=== PATIENT | female | born 1965 | race Caucasian/White ===

== ENCOUNTER → 2018-05-27 | Outpatient (CLI) | payer OTHER ==
--- NOTE | 2018-05-27 13:28 | XR ---
Left shoulder HISTORY: Left shoulder pain 3 views of the left shoulder, no comparisons There is hypertrophic change, subchondral cyst formation at the acromioclavicular joint. Alignment is maintained. Left lung apex as visualized is normal. No fracture or dislocation. IMPRESSION: Acromioclavicular joint arthropathy.
== END | disposition home or self-care (01) ==
LOC: RADXRMAIN 12:46
PROVIDERS: ATTEND Family Medicine
DX: M12.812 Other specific arthropathies, not elsewhere classified, left shoulder (principal)

== ENCOUNTER → 2018-10-30 | Outpatient (CLI) | payer OTHER ==
--- NOTE | 2018-10-31 11:03 | MM ---
Reason for exam: screening (asymptomatic). Last mammogram was performed 3 years and 7 months ago. Physical Findings: A clinical breast exam by your physician is recommended on an annual basis and results should be correlated with mammographic findings. MG 3D Screening Mammo W/Cad Bilateral CC and MLO view(s) were taken. Prior study comparison: March 25, 2015, bilateral MG 3d diag mammo w/cad [facility]. The breast tissue is heterogeneously dense. This may lower the sensitivity of mammography. There is chronic nodularity bilaterally. There is no discrete abnormality. ASSESSMENT: Benign, BI-RAD 2 RECOMMENDATION: Routine screening mammogram of both breasts in 1 year.
== END | disposition home or self-care (01) ==
LOC: RADMAMWWP 08:41
PROVIDERS: ATTEND Obstetrics & Gynecology
DX: Z12.31 Encounter for screening mammogram for malignant neoplasm of breast (principal)
CPT/HCPCS: 77063; 77067

== ENCOUNTER 2019-07-31 14:55 | Emergency (ER) | payer OTHER ==
[2019-07-31] MEDS ORDERED: ACETAMINOPHEN TAB 325 MG TAB PO STA (16:25)
--- NOTE | 2019-07-31 16:35 | ED ---
Fall HPI - General Chief Complaint: Fall Stated Complaint: Fall, Facial Lac Time Seen by Provider: 07/31/19 16:05 Source: patient Mode of arrival: ambulatory - History of Present Illness Initial Comments: Patient is a 54-year-old female presenting to emergency Department after a fall just prior to arrival. Patient states she tripped in a pothole and fell forward. She did put out her right hand to help manage her fall. She did hit her nose on the cement. She is complaining of pain in her right wrist as well as her nose hurting. There is no loss of consciousness. Patient denies lightheadedness, dizziness, nausea, vomiting. She is not on blood thinners. She denies any previous injury to her right wrist. She denies any lower extremity pain or injuries. She has no other complaints at this time. Upon arrival to the ER, her vital signs are stable. - Related Data Allergies Allergy/AdvReac Type Severity Reaction Status Date / Time No Known Allergies Allergy Verified 07/31/19 15:32 Review of Systems ROS Statement: Those systems with pertinent positive or pertinent negative responses have been documented in the HPI. ROS Other: All systems not noted in ROS Statement are negative. Past Medical History Past Medical History: Hypertension, Thyroid Disorder History of Any Multi-Drug Resistant Organisms: None Reported Past Surgical History: Adenoidectomy, Cholecystectomy, Tonsillectomy Past Psychological History: No Psychological Hx Reported Smoking Status: Never smoker Past Alcohol Use History: None Reported Past Drug Use History: None Reported General Exam - General Exam Comments Initial Comments: GENERAL: Well-appearing, well-nourished and in no acute distress. HEAD: Atraumatic, normocephalic. No signs of basilar skull fracture. EYES: Pupils equal round and reactive to light, extraocular movements intact, sclera anicteric, conjunctiva are normal. ENT: TMs normal, nares patent, oropharynx clear without exudates. Moist mucous membranes. Patient has a mild abrasion to the nasal bridge, pain with palpation of the distal part of the nasal bone as well as into the cartilage. No septal hematoma seen. No deformity noted. NECK: Normal range of motion, supple without lymphadenopathy or JVD. No midline tenderness. LUNGS: Breath sounds clear to auscultation bilaterally and equal. No wheezes rales or rhonchi. HEART: Regular rate and rhythm without murmurs, rubs or gallops. ABDOMEN: Soft, nontender, normoactive bowel sounds. No guarding, no rebound. No masses appreciated. : Deferred EXTREMITIES: Pain with palpation of the lateral aspect of the right wrist. Pain with supination and pronation. Patient does not want to flex or extend the wrist secondary to pain. She is neurovascular intact. She does have mild swelling around the right wrist. NEUROLOGICAL: Cranial nerves II through XII grossly intact. Normal speech, normal gait. PSYCH: Normal mood, normal affect. SKIN: Warm, Dry, normal turgor, no rashes or lesions noted. Limitations: no limitations Course Vital Signs 07/31/19 07/31/19 15:33 17:27 Temperature 98 F 97.9 F Pulse Rate 75 82 Respiratory 19 18 Rate Blood Pressure 153/87 148/72 O2 Sat by Pulse 99 98 Oximetry Procedures - Orthopedic Splinting/Casting Injury #1 Side: right Upper Extremity Injury Location: wrist Upper Extremity Immobilizer: wrist splint, Edwin wrap, synthetic pre-padded splint Medical Decision Making - Medical Decision Making Patient is a 54-year-old female presenting after tripping and falling and a popsicle. She has pain of her right wrist as well as her nasal bone. There was no LOC, no blood thinners. Patient has no noted deficits. She only has a small abrasion to her nasal bridge. No deformity seen. X-rays of the right wrist reveal an acute comminuted minimally displaced fracture through the volar radial aspect of the distal radius. Patient was placed in a splint until follow-up with orthopedics. She is in agreement with this plan of care. Patient stable for discharge at this time. Return parameters were discussed with the patient she verbalized understanding. Case discussed with Dr. Adrian. Disposition Clinical Impression: Fall, Right radial head fracture Disposition: HOME SELF-CARE Condition: Stable Instructions (If sedation given, give patient instructions): Wrist Fracture in Adults (ED) Additional Instructions: Please return to the Emergency Department if symptoms worsen or any other concerns. May take Tylenol or Motrin for discomfort as well as icing to the area. Keep wrist elevated. Follow-up with orthopedics as discussed. Is patient prescribed a controlled substance at d/c from ED?: No Referrals: Robe Nguyen DO [Primary Care Provider] - 1-2 days Branch,Robert M, PAC [PHYSICIAN PUBLICITY PERSON] - 1-2 days
--- NOTE | 2019-07-31 16:40 | XR ---
EXAMINATION TYPE: XR wrist complete RT DATE OF EXAM: 07/31/2019 CLINICAL HISTORY: Pain after fall injury. TECHNIQUE: Frontal, lateral, scaphoid, and oblique images of the right wrist are obtained. COMPARISON: None FINDINGS: There is an acute comminuted minimally displaced intra-articular fracture through the radi al aspect of the distal radial meta-epiphysis. Adjacent ulna is intact. Minus ulnar variance is seen. The joint spaces in the right wrist appear within normal limits. The overlying soft tissue appears unremarkable. IMPRESSION: There is an acute comminuted minimally displaced intra-articular fracture through the vo lar radial aspect of the distal radial meta-epiphysis. (Initial encounter closed type posttraumatic fracture)
[2019-07-31 17:28] VITALS: BP 148/72; PULSE 82; RESP 18; TEMP 97.9
== END 2019-07-31 17:28 | disposition home or self-care (01) ==
LOC: EC 14:55
DX: S52.121A Displaced fracture of head of right radius, initial encounter for closed fracture (principal); S00.31XA Abrasion of nose, initial encounter; I10 Essential (primary) hypertension; W17.2XXA Fall into hole, initial encounter
CPT/HCPCS: 99283

== ENCOUNTER → 2021-10-18 | Outpatient (CLI) | payer OTHER ==
--- NOTE | 2021-10-19 18:50 | MM ---
Reason for Exam: Screening (asymptomatic). Last mammogram was performed 2 year(s) and 11 month(s) ago. Patient History: Menarche at age 14. First Full-Term at age 25. Risk Values: Sharron 5 year model risk: 1.1%. NCI Lifetime model risk: 7.4%. Prior Study Comparison: 03/25/2015 Bilateral Diagnostic Mammogram, [facility]. 10/30/2018 Bilateral Screening Mammogram, [facility]. Tissue Density: There are scattered fibroglandular densities. Findings: Analyzed By CAD. There is no suspicious group of microcalcifications or new suspicious mass in either breast. Chronic nodularity is present bilaterally. Overall Assessment: Benign, BI-RAD 2 Management: Screening Mammogram of both breasts in 1 year. A clinical breast exam by your physician is recommended on an annual basis and results should be correlated with mammographic findings. Electronically signed and approved by: Davonte Sky D.O. Radiologis
== END | disposition home or self-care (01) ==
LOC: RADMAMWWP 14:06
PROVIDERS: ATTEND Obstetrics & Gynecology
DX: Z12.31 Encounter for screening mammogram for malignant neoplasm of breast (principal)
CPT/HCPCS: 77067

== ENCOUNTER → 2023-10-18 | Outpatient (CLI) | payer OTHER ==
--- NOTE | 2023-10-18 08:55 | MM ---
Reason for Exam: Clinical finding. Last mammogram was performed 2 year(s) and 0 month(s) ago. Indicated Problems: Pain of the right side (Focal) for 1 Month(s). Patient History: Menarche at age 14. First Full-Term at age 25. Postmenopausal. Patient has history of breast feeding. Risk Values: Sharron 5 year model risk: 1.1%. NCI Lifetime model risk: 7.1%. Prior Study Comparison: 03/25/2015 Bilateral Diagnostic Mammogram, [facility]. 10/30/2018 Bilateral Screening Mammogram, [facility]. 10/18/2021 Bilateral MG screening mammo w CAD, [facility]. Tissue Density: There are scattered areas of fibroglandular density. Findings: Analyzed By CAD. Chronic bilateral nodularity. Area of interest marked along the inferior aspect of the right breast at the site of patient's purplish skin discoloration. No underlying discrete mammographic abnormality is seen. Overall Assessment: Incomplete: need additional imaging evaluation, BI-RAD 0 Management: Diagnostic Breast Ultrasound of the right breast. Electronically signed and approved by: Sarah Xiong M.D. Radiologist
--- NOTE | 2023-10-18 09:10 | USB ---
Reason for Exam: Clinical finding. Patient History: Menarche at age 14. First Full-Term at age 25. Postmenopausal. Patient has history of breast feeding. Risk Values: Sharron 5 year model risk: 1.1%. NCI Lifetime model risk: 7.1%. Technique: Method: Targeted. Patient Position: Supine. Prior Study Comparison: 03/25/2015 Bilateral Diagnostic Mammogram, [facility]. 10/30/2018 Bilateral Screening Mammogram, [facility]. 10/18/2021 Bilateral MG screening mammo w CAD, [facility]. Findings: The area of palpable concern of the right breast, the axilla of the right breast and the retroareolar of the right breast were scanned. Targeted ultrasound at the site of patient's pain and skin discoloration 4:00 right breast. Additional scanning at the subareolar region and axilla. No solid or cystic lesion or axillary lymphadenopathy. Overall Assessment: Benign, BI-RAD 2 Management: Screening Mammogram of both breasts in 1 year. Further clinical management of patient's skin discoloration/pain. If any palpable area arises, the patient can be rescanned. A clinical breast exam by your physician is recommended on an annual basis and results should be correlated with mammographic findings. This exam should not preclude additional follow-up of suspicious palpable abnormalities. Results were given to the patient verbally at the time of exam. Electronically signed and approved by: Sarah Xiong M.D. Radiologist
== END | disposition home or self-care (01) ==
LOC: RADMAMWWP 08:13
PROVIDERS: ATTEND Obstetrics & Gynecology
DX: R92.323 Mammographic fibroglandular density, bilateral breasts (principal); N64.4 Mastodynia; Z78.0 Asymptomatic menopausal state
CPT/HCPCS: 77062; 77066